=== PATIENT | female | born 1995 | race Caucasian/White ===

== ENCOUNTER 2025-04-01 12:02 | Emergency (ER) | payer BC ==
[~2025-04-01] VITALS: Ht 162.6 cm; Wt 77.6 kg
[2025-04-01 12:22] VITALS: BP 116/67; TEMP 97.7; O2SAT 97
[2025-04-01] MEDS ORDERED: IBUP-1955 PO (13:26)
== END 2025-04-01 13:35 | disposition home or self-care (01) ==
LOC: ER 12:02
DX: S00.81XA Abrasion of other part of head, initial encounter (principal); J45.909 Unspecified asthma, uncomplicated; Z88.0 Allergy status to penicillin; Z88.5 Allergy status to narcotic agent; Y04.0XXA Assault by unarmed brawl or fight, initial encounter; Y93.89 Activity, other specified; Y92.89 Other specified places as the place of occurrence of the external cause; Y99.8 Other external cause status